=== PATIENT | male | born 1965 | race Caucasian/White ===

== ENCOUNTER 2017-02-11 10:31 | Emergency (ER) | payer OTHER ==
[~2017-02-11] VITALS: Ht 177.8 cm; Wt 139.0 kg
[~2017-02-11 10:31] MED LIST: IBUP400T20 PO; LISI-363 PO; MAXZ25 PO; MELO7.5 PO; OMPR20CCR PO
[2017-02-11 10:39] VITALS: BP 136/83; PULSE 90; RESP 16; TEMP 98.3; O2SAT 98
[2017-02-11] MEDS ORDERED: OMEP20TA PO (11:00)
[2017-02-11] MEDS ORDERED: MOBI7.5T PO (11:00)
[2017-02-11] MEDS ORDERED: LISI-515 PO (11:00)
[2017-02-11] MEDS ORDERED: TRIA37.5 PO (11:00)
--- NOTE | 2017-02-11 11:12 | PD ---
HPI . right arm pain Chief Complaint: Injury Time Seen by Provider: 11:11 Travel History International Travel<30 days: No Contact w/Intl Traveler<30days: No Traveled to known affect area: No History of Present Illness HPI 51 -year-old male with history of hypertension here with complaints of a work injury. 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 He is now complaining of pain in the right biceps area. There is no obvious deformity, but there is some mild swelling. He denies any direct trauma to the area. He is able to move all of his joints freely, but he does have pain in the right upper extremity. There is no radiation of the pain. It is aching and gets sharp with movement. He is right handed dominant. PFSH Past Medical History Cardiovascular Problems: Yes High Cholesterol: Yes Diminished Hearing: No Hypertension: Yes Tetanus Vaccination: Unknown Social History Alcohol Use: Yes (1 DRINK PER WEEK) Tobacco Use: No Substance Use: No Allergies-Medications (Allergen,Severity, Reaction): Coded Allergies: Codeine (Verified Allergy, Mild, 02/11/17) Penicillin (Verified Allergy, Mild, 02/11/17) Reported Meds & Prescriptions Reported Meds & Active Scripts Active Ibuprofen 800 Mg Tab 800 Mg PO TID Reported Triamterene-Hydrochlorothiazide 37.5-25 Mg Tab 1 Tab PO DAILY Omeprazole 20 Mg Tab 20 Mg PO DAILY Mobic (Meloxicam) 7.5 Mg Tab 7.5 Mg PO DAILY Lisinopril 20 Mg Tab 20 Mg PO DAILY Review of Systems General / Constitutional: No: Fever Eyes: No: Visual changes HENT: No: Headaches Cardiovascular: No: Chest Pain or Discomfort Respiratory: No: Shortness of Breath Gastrointestinal: No: Abdominal Pain Genitourinary: No: Dysuria Musculoskeletal: Positive: Pain (R UE pain) Skin: No Rash Neurologic: No: Weakness Psychiatric: No: Depression Endocrine: No: Polydipsia Hematologic/Lymphatic: No: Easy Bruising Physical Exam Narrative GENERAL: AAO x 3, no acute distress, Well-nourished, well-developed patient. SKIN: Warm and dry. No visible rashes or bruising. HEAD: Normocephalic and atraumatic. EYES: No scleral icterus. No injection or drainage. ENT: No nasal drainage noted. Airway patent. NECK: Supple, trachea midline. No JVD. CARDIOVASCULAR: Regular rate and rhythm without murmurs, gallops, or rubs. RESPIRATORY: Breath sounds equal bilaterally. No accessory muscle use. No rhonchi or rales. GASTROINTESTINAL: Abdomen soft, non-tender, nondistended. EXTREMITIES: No cyanosis. Right upper extremity biceps area with some edema, no obvious deformity. There is tenderness along the biceps. Range of motion is normal. [employer] strength is normal bilaterally. BACK: Nontender without obvious deformity. No CVA tenderness. PSYCH: AAO x 3, normal affect. Data Data Last Documented VS Vital Signs Date Time Temp Pulse Resp B/P Pulse Ox O2 Delivery O2 Flow Rate FiO2 02/11/17 10:39 98.3 90 16 136/83 98 Orders Humerus (Min 2vws) (02/11/17 11:16) MDM Medical Decision Making Medical Screen Exam Complete: Yes Emergency Medical Condition: Yes Medical Record Reviewed: Yes Differential Diagnosis muscle strain, muscle tear, less likely humerus fracture Narrative Course 51 -year-old male with history of hypertension here with complaints of a work injury. 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 He is now complaining of pain in the right biceps area. There is no obvious deformity, but there is some mild swelling. He denies any direct trauma to the area. He is able to move all of his joints freely, but he does have pain in the right upper extremity. There is no radiation of the pain. It is aching and gets sharp with movement. He is right handed dominant. Patient seen and examined. We'll go ahead and check an x-ray to rule out any type of fracture. I believe this more muscular in nature. Advised him that he will need to follow-up with primary care provider for further recommendations and further imaging. Offered muscle relaxers and patient declined. He tells me has muscle relaxers at home. Xray without any acute fracture. Patient given a sling for support. Recommend no lifting, pushing or pulling with right arm for the next 2 days. Will need to f/u with PCP for further recommendations and imaging. Discussed with patient. Patient verbalized understanding of instructions, questions were answered, and thanked me for their care. I advised them if their condition worsens, please return to the nearest emergency room for further care. Diagnosis Primary Impression: Muscle strain, upper arm Qualified Code: S46.911A - Muscle strain, upper arm, right, initial encounter Patient Instructions: General Instructions, Muscle Strain (ED) Departure Forms: Tests/Procedures, Work Release Enter return to work date: Feb 12, 2017 Special Instructions: no lifting, pushing or pulling with right arm for the next 2 days. Will need to follow up with primary care doctor for further recommendations. Additional Instructions: Rest the affected area as much as possible. Ice this area for 15-20 minutes at a time. You can do this every hour or as much as tolerated. Elevate this area. Use ibuprofen as needed for pain and inflammation. Please return to emergency department if your symptoms return or worsen. Follow up with your primary care provider. Take medications as prescribed. Med/Other Pt SpecificInfo: Prescription(s) given Scripts Ibuprofen 800 Mg [id number] Mg PO TID #21 TAB Prov:Jarek Jiang MD 02/11/17 Disposition: 01 DISCHARGE HOME Condition: Stable Brittany Styles Feb 11, 2017 11:12
[2017-02-11] MEDS ORDERED: IBUP800T23 PO (11:19)
--- NOTE | 2017-02-11 12:16 | RADHPO ---
EXAM DATE/TIME: 02/11/2017 11:23 [facility] COMPARISON: No previous studies available for comparison. INDICATIONS : Right elbow and mid humerus pain. Patient was at work pushing something and heard a pop. MEDICAL HISTORY : None. SURGICAL HISTORY : None. ENCOUNTER: Initial ACUITY: 1 day PAIN SCORE: 5/10 LOCATION: Right humerus FINDINGS: Two view examination of the right humerus demonstrates no evidence of fracture or dislocation. Lucenc y in the radial epicondyle of the distal humerus extends beyond the osseous borders and I believe is artifactual. Bony mineralization is normal. The soft tissue structures are intact. CONCLUSION: 1. Linear lucency over the radial epicondyle of the distal humerus I believe is artifactual. 2. Otherwise, no acute fracture. Bj Soler MD on February 11, 2017 at 12:12 Board Certified Radiologist. This report was verified electronically.
== END 2017-02-11 12:39 | disposition home or self-care (01) ==
LOC: PHED 10:31 → PHEFT 12:39
DX: S46.911A Strain of unspecified muscle, fascia and tendon at shoulder and upper arm level, right arm, initial encounter (principal); E78.00 Pure hypercholesterolemia, unspecified; I10 Essential (primary) hypertension; X50.0XXA Overexertion from strenuous movement or load, initial encounter; Y93.89 Activity, other specified; Y92.69 Other specified industrial and construction area as the place of occurrence of the external cause; Y99.0 Civilian activity done for income or pay
CPT/HCPCS: 73060; 99283